=== PATIENT | female | born 1965 | race Caucasian/White ===

== ENCOUNTER 2024-01-20 15:35 | Emergency (ER) | payer OTHER ==
[~2024-01-20] VITALS: Ht 152.4 cm; Wt 72.6 kg
[2024-01-20 15:55] VITALS: BP 157/79; PULSE 78; RESP 20; TEMP 97.3; O2SAT 97
[2024-01-20] MEDS: MECLIZINE 25 MG TAB PO ONE (16:20)
[2024-01-20] MEDS: LIDOCAINE MPF 1% 10 MG/ML VIAL INJ ONE (16:21)
[2024-01-20] MEDS ORDERED: DICL-342 PO (17:34)
[2024-01-20] MEDS ORDERED: LID5T TP (17:34)
[2024-01-20] MEDS ORDERED: MECL-303 PO (17:34)
== END 2024-01-20 18:30 | disposition home or self-care (01) ==
LOC: MED 15:35
DX: M79.18 Myalgia, other site (principal); R42 Dizziness and giddiness; R03.0 Elevated blood-pressure reading, without diagnosis of hypertension; M54.6 Pain in thoracic spine; M54.2 Cervicalgia; E11.9 Type 2 diabetes mellitus without complications; Z96.651 Presence of right artificial knee joint; Z79.899 Other long term (current) drug therapy
CPT/HCPCS: 20552; 82948; 93005; 99284; J2001; J8597